=== PATIENT | female | born 1975 | race Caucasian/White ===

== ENCOUNTER 2024-02-08 10:06 | Emergency (ER) | payer SELFPAY ==
[2024-02-08 10:31] VITALS: BP 127/90
== END 2024-02-08 12:15 | disposition left against medical advice (07) ==
LOC: EMR 10:06
PROVIDERS: EMERGENCY PHYSICIAN Emergency Medicine
DX: R55 Syncope and collapse (principal); S00.81XA Abrasion of other part of head, initial encounter; X58.XXXA Exposure to other specified factors, initial encounter
CPT/HCPCS: 99281; 93005